=== PATIENT | male | born 1980 | race Two or more races ===

== ENCOUNTER 2018-03-03 16:48 | Emergency (ER) | payer BC ==
[2018-03-03] MEDS ORDERED: ASPIRIN 81 MG TABLET, CHEWABLE PO ONE (17:54)
--- NOTE | 2018-03-03 17:57 | ER Document Report ---
ED Medical Screen (RME) - General Chief Complaint: Chest Pain Stated Complaint: CHEST PAIN Time Seen by Provider: 03/03/18 17:51 Mode of Arrival: Ambulatory Information source: Patient Notes: 37-year-old male presents emergency department with complaints of left-sided chest pain shortness of breath that started at 5 PM yesterday. Patient states that the symptoms have been constant in nature. He describes the pain as a pressure/aching sensation in the left chest. He denies any radiation. He denies any alleviating or exacerbating factors. Patient states that intermittently he will have palpitations. Patient denies any medical problems. Is not on any medications. Patient denies a family history of coronary artery disease. Patient denies any recent travel, recent surgeries, calf pain, calf swelling, hormone use, history of DVT or PE. I have greeted and performed a rapid initial assessment of this patient. A comprehensive ED assessment and evaluation of the patient, analysis of test results and completion of the medical decision making process will be conducted by additional ED providers. PHYSICAL EXAMINATION: GENERAL: Well-appearing, well-nourished and in no acute distress. HEAD: Atraumatic, normocephalic. EYES: Pupils equal round extraocular movements intact, conjunctiva are normal. ENT: Nares patent NECK: Normal range of motion LUNGS: No respiratory distress. Left anterior chest wall tenderness to palpation. Musculoskeletal: Normal range of motion NEUROLOGICAL: Normal speech, normal gait. PSYCH: Normal mood, normal affect. SKIN: Warm, Dry, normal turgor, no rashes or lesions noted. TRAVEL OUTSIDE OF THE [place] IN LAST 30 DAYS: No - Related Data Allergies/Adverse Reactions: No Known Allergies Allergy (Unverified 08/05/14 20:18)
--- NOTE | 2018-03-03 18:29 | RADIOLOGY REPORT (SQ) ---
EXAM DESCRIPTION: CHEST SINGLE VIEW COMPLETED DATE/TIME: 03/03/2018 6:22 pm REASON FOR STUDY: chest pain COMPARISON: None. EXAM PARAMETERS: NUMBER OF VIEWS: One view. TECHNIQUE: Single frontal radiographic view of the chest acquired. RADIATION DOSE: NA LIMITATIONS: None. FINDINGS: LUNGS AND PLEURA: No opacities, masses or pneumothorax. No pleural effusion. MEDIASTINUM AND HILAR STRUCTURES: No masses. Contour normal. HEART AND VASCULAR STRUCTURES: Heart normal in size. Normal vasculature. BONES: No acute findings. HARDWARE: None in the chest. OTHER: No other significant finding. IMPRESSION: NO ACUTE RADIOGRAPHIC FINDING IN THE CHEST. TECHNICAL DOCUMENTATION: JOB ID: [id number] [employer]- All Rights Reserved Reading location - IP/workstation name: [email or web address]
--- NOTE | 2018-03-03 18:41 | EKG REPORT ---
SEVERITY:- ABNORMAL ECG - SINUS RHYTHM BORDERLINE T ABNORMALITIES, ANT-LAT LEADS : Confirmed by: Mac Forbes MD 03-Mar-2018 18:40:15
[2018-03-03 18:52] LABS: APPEARANCE,URINE CLEAR; BILIRUBIN,URINE NEGATIVE (NEGATIVE); COLOR,URINE YELLOW; GLUCOSE, URINE NEGATIVE (NEGATIVE); KETONES,URINE TRACE mg/dL (NEGATIVE); LEUKOCYTE ESTERASE,URINE NEGATIVE (NEGATIVE); NITRITE,URINE NEGATIVE (NEGATIVE); PROTEIN,URINE NEGATIVE (NEGATIVE); URINE SPECIFIC GRAVITY 1.026
[2018-03-03 18:55] LABS: ABSOLUTE EOSINOPHILS # (AUTO) 0.1 10^3/uL (0.0-0.6); ABSOLUTE LYMPHOCYTES (AUTO) 2.2 10^3/uL (0.5-4.7); ABSOLUTE MONOCYTES (AUTO) 0.7 10^3/uL (0.1-1.4); ABSOLUTE NEUT (AUTO) 2.6 10^3/uL (1.7-8.2); BASOPHILS % (AUTO) 0.9 % (0-2); EOSINOPHILS % (AUTO) 1.9 % (0-6); HEMATOCRIT 45.5 % (37.9-51.0); HEMOGLOBIN 15.9 g/dL (13.5-17.0); LYMPHOCYTES % (AUTO) 39.9 % (13-45); MEAN CORPUSCULAR HGB CONC 34.9 g/dL (32.0-36.0); MEAN CORPUSCULAR VOLUME 83 fl (80-97); MONOCYTES % (AUTO) 11.7 % (3-13); PLATELET COUNT 209 10^3/uL (150-450); RED BLOOD COUNT 5.48 10^6/uL (4.35-5.55); RED CELL DISTRIBUTION WIDTH 12.6 % (11.5-14.0); SEGMENTED NEUTROPHILS % (AUTO) 45.6 % (42-78); TOTAL CELLS COUNTED % (AUTO) 100 %; WHITE BLOOD COUNT 5.6 10^3/uL (4.0-10.5)
[2018-03-03 19:06] LABS: ALANINE AMINOTRANSFERASE 51 U/L (21-72); ALBUMIN 4.2 g/dL (3.5-5.0); ALKALINE PHOSPHATASE 98 U/L (38-126); ANION GAP 10 (5-19); ASPARTATE AMINO TRANSFERASE 60 U/L (17-59); BILIRUBIN,DIRECT 0.4 mg/dL (0.0-0.4); BILIRUBIN,TOTAL 0.8 mg/dL (0.2-1.3); BLOOD UREA NITROGEN 27 mg/dL (7-20); CALCIUM 9.6 mg/dL (8.4-10.2); CARBON DIOXIDE 32 mmol/L (22-30); CHLORIDE 101 mmol/L (98-107); CREATINE KINASE 193 U/L (55-170); GLUCOSE 101 mg/dL (75-110); POTASSIUM 4.4 mmol/L (3.6-5.0); SODIUM 142.6 mmol/L (137-145); TOTAL PROTEIN 7.7 g/dL (6.3-8.2)
[2018-03-03 19:13] LABS: URINE AMPHETAMINES SCREEN NEGATIVE; URINE BARBITURATES SCREEN NEGATIVE; URINE BENZODIAZEPINES SCREEN NEGATIVE; URINE COCAINE SCREEN NEGATIVE; URINE MARIJUANA (THC) SCREEN NEGATIVE; URINE METHADONE SCREEN NEGATIVE; URINE PHENCYCLIDINE SCREEN NEGATIVE
[2018-03-03 19:27] LABS: CREATINE KINASE MB 2.5 ng/mL (<4.55)
[2018-03-03 19:31] LABS: TROPONIN I 0.047 ng/mL
[2018-03-03] MEDS ORDERED: NORMAL SALINE 1000 ML 1,000 ML IV ONE (20:34)
--- NOTE | 2018-03-03 21:33 | RADIOLOGY REPORT (SQ) ---
CT CHEST ANGIOGRAPHY WITHOUT THEN WITH IV CONTRAST HISTORY: Shortness of breath. Evaluate for pulmonary embolism. COMPARISON: None. TECHNIQUE: CT angiogram of the chest with IV contrast. 3-D MIP images were obtained in coronal and sagittal reconstructions. This exam was performed according to our departmental dose-optimization program, which includes automated exposure control, adjustment of the mA and/or kV according to patient size and/or use of iterative reconstruction technique. FINDINGS: No acute pulmonary embolism is seen. No thoracic aortic aneurysm or dissection. Normal heart size. No pericardial effusion. Thyroid gland is unremarkable. No mediastinal, hilar, or axillary adenopathy is seen. No consolidation, pleural effusion, or pneumothorax is identified. Osseous structures are intact. Visualized upper abdomen is unremarkable. IMPRESSION: No acute pulmonary embolism.
--- NOTE | 2018-03-04 00:43 | ER Document Report ---
ED General - General Chief Complaint: Chest Pain Stated Complaint: CHEST PAIN Time Seen by Provider: 03/03/18 17:51 Mode of Arrival: Ambulatory TRAVEL OUTSIDE OF THE [place] IN LAST 30 DAYS: No - HPI Patient complains to provider of: Chest pain Notes: Patient coming in for evaluation of chest pain. Patient was seen in the triage area by the provider notes provided below 37-year-old male presents emergency department with complaints of left-sided chest pain shortness of breath that started at 5 PM yesterday. Patient states that the symptoms have been constant in nature. He describes the pain as a pressure/aching sensation in the left chest. He denies any radiation. He denies any alleviating or exacerbating factors. Patient states that intermittently he will have palpitations. Patient denies any medical problems. Is not on any medications. Patient denies a family history of coronary artery disease. Patient denies any recent travel, recent surgeries, calf pain, calf swelling, hormone use, history of DVT or PE. Patient does agree with the above stents. Patient denies any new pre-workout activity denies any drug abuse. Patient states pain spontaneously resolved. 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 Patient otherwise at this time is chest pain- free. Patient does have a past medical history of premature at 26 weeks - Related Data Allergies/Adverse Reactions: No Known Allergies Allergy (Verified 03/03/18 23:03) Past Medical History - General Information source: Patient - Social History Smoking Status: Never Smoker Frequency of alcohol use: Occasional Drug Abuse: None Family History: Reviewed & Not Pertinent Patient has suicidal ideation: No Patient has homicidal ideation: No Renal/ Medical History: Denies: Hx Peritoneal Dialysis Past Surgical History: Reports: Hx Abdominal Surgery - hernia repair Review of Systems - Review of Systems Constitutional: No symptoms reported EENT: No symptoms reported Cardiovascular: Chest pain Respiratory: No symptoms reported Gastrointestinal: No symptoms reported Genitourinary: No symptoms reported Male Genitourinary: No symptoms reported Musculoskeletal: No symptoms reported Skin: No symptoms reported Hematologic/Lymphatic: No symptoms reported Neurological/Psychological: No symptoms reported -: Yes All other systems reviewed and negative Physical Exam - Vital signs Vitals: Temp Pulse Resp BP Pulse Ox 97.8 F 79 18 133/73 H 96 03/03/18 16:58 03/03/18 16:58 03/03/18 16:58 03/03/18 16:58 03/03/18 16:58 Interpretation: Normal - General General appearance: Appears well, Alert - HEENT Head: Normocephalic, Atraumatic Eyes: Normal Pupils: PERRL - Respiratory Respiratory status: No respiratory distress Chest status: Nontender Breath sounds: Normal Chest palpation: Normal - Cardiovascular Rhythm: Regular Heart sounds: Normal auscultation Murmur: No - Abdominal Inspection: Normal Distension: No distension Bowel sounds: Normal Tenderness: Nontender Organomegaly: No organomegaly - Back Back: Normal, Nontender - Extremities General upper extremity: Normal inspection, Nontender, Normal color, Normal ROM , Normal temperature General lower extremity: Normal inspection, Nontender, Normal color, Normal ROM , Normal temperature, Normal weight bearing. No: Emma's sign - Neurological Neuro grossly intact: Yes Cognition: Normal Orientation: AAOx4 Lindsey Coma Scale Eye Opening: Spontaneous Lindsey Coma Scale Verbal: Oriented [place] Coma Scale Motor: Obeys Commands [place] Coma Scale Total: 15 Speech: Normal Motor strength normal: LUE, RUE, LLE, RLE Sensory: Normal - Psychological Associated symptoms: Normal affect, Normal mood - Skin Skin Temperature: Warm Skin Moisture: Dry Skin Color: Normal Course - Re-evaluation Re-evalutation: 03/04/18 00:47 Patient EKG showed biphasic T waves V1 V2 V3. Patient has no EKGs that we can compare to. Patient remained chest pain-free. Initial troponin 0 0.04 d-dimer slightly elevated because of the patient's symptoms and went ahead and perform a CTA that was otherwise negative. 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 Forbes. Unsure if this is a true Wellens syndrome on the patient's EKG recommended consult with tertiary care facility. Discussed the case with the associate account director at [facility] Dr Martines who accepted the patient on behalf of Dr. Puentes patient will be accepted through transfer to the cardiology 4. Updated the patient they agree with this plan - Vital Signs Vital signs: Temp Pulse Resp BP Pulse Ox 97.9 F 79 15 113/58 L 95 11/05/18 23:13 03/03/18 16:58 03/04/18 00:00 03/03/18 22:00 03/04/18 00:00 - Laboratory Result Diagrams: 03/03/18 18:25 03/03/18 18:25 Laboratory results interpreted by me: 03/03/18 03/03/18 18:25 18:25 Carbon Dioxide 32 H BUN 27 H AST 60 H Creatine Kinase 193 H Urine Ketones TRACE H Urine Urobilinogen 2.0 H Critical Care Note - Critical Care Note Total time excluding time spent on procedures (mins): 35 Comments: Patient with abnormal EKG time spent multiple phone calls to our cardiology team and transferring to tertiary care cardiology team. Discharge - Discharge Clinical Impression: Chest pain Condition: Good Disposition: [facility] Referrals: YISEL REDDING MD [Primary Care Provider] - Follow up as needed
[2018-03-04 01:05] VITALS: BP 130/65
--- NOTE | 2018-03-04 07:41 | EKG REPORT ---
SEVERITY:- ABNORMAL ECG - SINUS RHYTHM BORDERLINE INFERIOR Q WAVES PROLONGED QT INTERVAL NO CHANGE IN NONSPECIFIC ST-T CHANGES IN ANTERIOR LEADS. : Confirmed by: Mac Forbes MD 04-Mar-2018 07:41:24
== END 2018-03-04 01:05 | disposition short-term general hospital (02) ==
LOC: ER 16:48
DX: R07.9 Chest pain, unspecified (principal); R06.02 Shortness of breath
CPT/HCPCS: 93005; 99291; 96360; 36415; 82553; 82550; 85025; 80053; 81001; 84484; 80307; 85379; 71045; 71275; 93010; J7030